=== PATIENT | female | born 1985 ===

== ENCOUNTER 2017-08-24 13:39 | Emergency (ER) | payer SELFPAY ==
[2017-08-24 13:47] VITALS: BP 114/74; PULSE 83; RESP 18; TEMP 98.5; O2SAT 98
--- NOTE | 2017-08-24 14:21 | ED PDOC ---
Upper Extremity Pain/Injury Time Seen by Provider: 08/24/17 13:59 Chief Complaint (Nursing): Upper Extremity Problem/Injury Chief Complaint (Provider): Upper Extremity Problem/Injury History Per: Patient History/Exam Limitations: no limitations Onset/Duration Of Symptoms: Mins (prior to arrival) Current Symptoms Are (Timing): Still Present Additional Complaint(s): Dionna Ruiz is a 32 year old female with no past medical history who is presenting to the ER for evaluation of laceration to left second digit, onset while using a knife to cut an avocado prior to arrival. Patient denies any numbness, tingling, or decrease in range of motion. She offers no other medical complaints at this time. PMD: none provided Past Medical History Reviewed: Historical Data, Nursing Documentation, Vital Signs Vital Signs: Last Vital Signs Temp 98.5 F 08/24/17 13:44 Pulse 83 08/24/17 13:44 Resp 18 08/24/17 13:44 BP 114/74 08/24/17 13:44 Pulse Ox 98 08/24/17 13:44 - Medical History PMH: No Chronic Diseases - Family History Family History: States: Unknown Family Hx - Allergies Allergies/Adverse Reactions: Allergies Allergy/AdvReac Type Severity Reaction Status Date / Time No Known Allergies Allergy Verified 08/24/17 13:44 Review of Systems ROS Statement: Except As Marked, All Systems Reviewed And Found Negative Musculoskeletal: Negative for: Other (decrease in range of motion of left second digit) Neurological: Negative for: Numbness, Other (tingling) Physical Exam - Reviewed Nursing Documentation Reviewed: Yes Vital Signs Reviewed: Yes - Physical Exam Comments: GENERAL APPEARANCE: Patient is awake, alert, oriented x 3, in no acute distress. SKIN: Warm, dry; (-) cyanosis. UPPER EXTREMITY: (+) 2 cm laceration to the proximal left second digit. (+) full ROM. (+) normal capillary refill less than 2 seconds. (+) distal sensation intact. (+) radial pulses 2+. NEURO AND PSYCH: Mental status as abov - ECG O2 Sat by Pulse Oximetry: 98 (RA) Pulse Ox Interpretation: Normal Medical Decision Making Medical Decision Making: Time: 14:10 Patient tolerated procedure well. Patient instructed on proper wound care, advised to have sutures removed after 7 days. Advised to follow up with the clinic for wound care and suture removal. Return to the emergency room at any time for any new or worsening symptoms. Patient advised to have sutures removed after one week. Patient states she fully agrees with and understands discharge instructions. States that she agrees with the plan and disposition. Verbalized and repeated discharge instructions and plan. I have given the patient opportunity to ask any additional questions. Scribe Attestation: Documented by Khadra Klein, acting as a scribe for Ju Carpio PA-C. Provider Scribe Attestation: All medical record entries made by the Scribe were at my direction and personally dictated by me. I have reviewed the chart and agree that the record accurately reflects my personal performance of the history, physical exam, medical decision making, and the department course for this patient. I have also personally directed, reviewed, and agree with the discharge instructions and disposition. Procedures - Laceration/Wound Repair Left Proximal Finger Wound Length (cm): 2 (proximal L 2nd digit) Wound's Depth, Shape: linear Wound Explored: no foreign body removed Irrigated w/ Saline (ccs): 100 Betadine Prep?: Yes Anesthesia: 1% Lidocaine Wound Repaired With: Sutures Suture Size/Type: 5:0, nylon Number of Sutures: 3 Wound Complexity: Simple Sterile Dressing Applied?: Yes Disposition - Clinical Impression Clinical Impression: Finger laceration - Patient ED Disposition Is Patient to be Admitted: No Counseled Patient/Family Regarding: Diagnosis, Need For Followup - Disposition Referrals: [facility] [Outside] Disposition: Routine/Home Disposition Time: 14:45 Condition: STABLE Additional Instructions: Thank you for letting us take care of you today. You were treated for left second finger laceration. The emergency medical care you received today was directed at your acute symptoms. Clean your wound with regular soap and water. Have sutures removed after 7 days. Return to the Emergency Department if your symptoms worsen, do not improve, or if you have any other problems. Please call one of the physicians/clinics you have been referred to that are listed on the Patient Visit Information form that is included in your discharge packet. Bring any paperwork you were given at discharge with you along with any medications you are taking to your follow up visit. Our treatment cannot replace ongoing medical care by a primary care provider (PCP) outside of the emergency department. Thank you for allowing the [facility] team to be part of your care today. 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
[2017-08-24] MEDS ORDERED: Tdap Vaccine 0.5 ml Vial (10-64 yrs) IM ONE ×2 (14:54→14:58)
== END 2017-08-24 15:04 | disposition home or self-care (01) ==
LOC: H.ER 13:39
DX: S61.221A Laceration with foreign body of left index finger without damage to nail, initial encounter (principal); W26.0XXA Contact with knife, initial encounter; Y92.89 Other specified places as the place of occurrence of the external cause

== ENCOUNTER 2017-09-01 18:02 | Emergency (ER) | payer SELFPAY ==
[2017-09-01 19:14] VITALS: BP 130/86; PULSE 80; RESP 16; TEMP 98; O2SAT 100
--- NOTE | 2017-09-01 19:23 | ED PDOC ---
HPI: Wound Care - HPI Time Seen by Provider: 09/01/17 19:16 Chief Complaint (Nursing): Wound Check Chief Complaint (Provider): suture removal History Per: Patient Additional Complaint(s): 32-year-old right hand dominant female presents for suture removal of laceration to left index finger that was repaired 9 days ago. Patient was seen initially at urgent care but referred to ED. Patient has ecchymosis and slight pain to affected area. She denies fever or chills, no active bleeding or drainage from the wound. Past Medical History Reviewed: Historical Data, Nursing Documentation, Vital Signs Vital Signs: Last Vital Signs Temp 98.0 F 09/01/17 19:11 Pulse 80 09/01/17 19:11 Resp 16 09/01/17 19:11 BP 130/86 09/01/17 19:11 Pulse Ox 100 09/01/17 19:11 - Medical History PMH: No Chronic Diseases - Surgical History Surgical History: No Surg Hx - Family History Family History: States: No Known Family Hx - Living Arrangements Living Arrangements: With Friends/Others - Social History Current smoker - smoking cessation education provided: No Alcohol: Occasional Drugs: Denies - Allergies Allergies/Adverse Reactions: Allergies Allergy/AdvReac Type Severity Reaction Status Date / Time No Known Allergies Allergy Verified 09/01/17 19:10 Review of Systems ROS Statement: Except As Marked, All Systems Reviewed And Found Negative Constitutional: Negative for: Fever, Chills Musculoskeletal: Positive for: Other (suture removal, wound check, left index finger laceration) Physical Exam - Reviewed Nursing Documentation Reviewed: Yes Vital Signs Reviewed: Yes - Physical Exam Appears: Positive for: Well, Non-toxic, No Acute Distress Skin: Negative for: Rash Eye Exam: Positive for: Normal appearance Extremity: Positive for: Other (Well-healed sutured laceration noted to left index finger. No acute infection noted. Ecchymosis noted to the affected digit with full range of motion) Neurologic/Psych: Positive for: Alert, Oriented - ECG O2 Sat by Pulse Oximetry: 100 Pulse Ox Interpretation: Normal Medical Decision Making Medical Decision Makin32 year old here for suture removal 3 sutures were removed from wound without any difficulty. Wound is well-healed. Advised Advil for pain and follow-up with hand specialist as needed. Disposition - Clinical Impression Clinical Impression: Visit for suture removal - Patient ED Disposition Is Patient to be Admitted: No Counseled Patient/Family Regarding: Diagnosis, Need For Followup - Disposition Referrals: Marin Lazo MD [Staff Provider] - Disposition: Routine/Home Disposition Time: 19:38 Condition: STABLE Additional Instructions: Keep area clean and dry. Ice and elevate affected area. Advil for pain. Follow- up as needed with hand specialist. Instructions: Stitches Removal Forms: [employer] (Yakut)
== END 2017-09-01 19:52 | disposition home or self-care (01) ==
LOC: H.ER 18:02
DX: Z48.02 Encounter for removal of sutures (principal)